=== PATIENT | female | born 1940 | race Caucasian/White ===

== ENCOUNTER → 2017-02-27 | Outpatient (CLI) | payer MEDICARE, OTHER | END | disposition home or self-care (01) | LOC: PCVCCLINIC 11:12 | PROVIDERS: ATTEND Internal Medicine Cardiovascular Disease | DX: I34.0 Nonrheumatic mitral (valve) insufficiency (principal); E78.00 Pure hypercholesterolemia, unspecified; I10 Essential (primary) hypertension; Z79.82 Long term (current) use of aspirin; Z79.899 Other long term (current) drug therapy | CPT/HCPCS: 80061; 93005; G0463 ==

== ENCOUNTER → 2018-02-26 | Outpatient (CLI) | payer MEDICARE, OTHER | END | disposition home or self-care (01) | LOC: PCVCIMAG 08:39 | DX: I07.1 Rheumatic tricuspid insufficiency (principal); I10 Essential (primary) hypertension; E78.00 Pure hypercholesterolemia, unspecified; R00.2 Palpitations; R06.02 Shortness of breath | CPT/HCPCS: 93005; 93306; G0463 ==

== ENCOUNTER → 2019-04-17 | Outpatient (CLI) | payer MEDICARE, OTHER | END | disposition home or self-care (01) | LOC: PCVCCLINIC 15:00 | PROVIDERS: ATTEND Internal Medicine Cardiovascular Disease | DX: I10 Essential (primary) hypertension (principal); E78.00 Pure hypercholesterolemia, unspecified; I34.0 Nonrheumatic mitral (valve) insufficiency; I42.9 Cardiomyopathy, unspecified; Z87.891 Personal history of nicotine dependence | CPT/HCPCS: 36415; 80061; 93005; G0463 ==

== ENCOUNTER → 2019-06-19 | Outpatient (CLI) | payer MEDICARE, OTHER ==
[~2019-06-19] MED LIST: REGADENOSON 0.4 MG/5 ML DISP.SYRIN. IV ONE
--- NOTE | 2019-06-19 13:23 | PCVCIMAG ---
APPROVED REPORT Imaging Protocol: Rest Tc-99m/Stress Tc-99m 1 day Study performed: 06/19/2019 09:27:19 Indication: Cardiomyopathy, Palpitations, Fatigue, Dyspnea Patient Location: Out-Patient Stress Nurse: Ora Douglas RN, Prudence Dickson RN [place] Tech:Zachary Lange KSTCB Ht: 5 ft 2 in Wt: 190 lbs BSA: 1.87 m2 HR: 60 bpm BP: 174/69 mmHg BMI: 34.74 Rhythm: Normal Sinus Rhythm Medical History Medical History: Age, Hyperlipidemia, HTN Medications: ASA, Losartan, Crestor Allergies: No known drug allergies Pretest Chest Pain Characteristics: No chest pain Exercise History: Indeterminate Resting Data Rest SPECT myocardial perfusion imaging was performed in supine position 45 minutes following the intravenous injection of 10.8 mCi of Tc-99m Sestamibi. Time of rest injection: 0920 Date: 06/19/2019 Administration Route: IV Administration Site: Right AC Pharmacologic Stress Pharmacologic stress test was performed by injecting Regadenoson 0.4 mg IV push over 10-15 seconds immediately followed by the intravenous injection of 35.2 mCi of Tc-99m Sestamibi. Time of stress injection: 1100 Date: 06/19/2019 Administration Route: IV Administration Site: Right AC Gated Stress SPECT was performed 45 minutes after stress injection. The images were gated to evaluate regional wall motion and calculate left ventricular ejection fraction. Stress Test Details Stress Test: Pharmacologic stress testing performed using 0.4 mg of regadenoson per 5 mL given IV over 10 seconds. HRMax Heart Rate (APMHR): 143 bpm Resting HR: 60 bpmTarget HR (85% APMHR): 121 bpm Max HR Achieved: 83 bpm % of APMHR: 58 Recovery HR: 85 bpm BP Resting BP: 174/69 mmHg Max BP: 145/66 mmHg Recovery BP: 135/66 mmHg ECG Resting ECG: Sinus Rhythm Stress ECG: Sinus Rhythm ST Change: Non-ischemic Arrhythmia: None Recovery ECG: Sinus Rhythm Clinical Reason for Termination: Completed protocol Stress Symptoms: Chest tightness Exercise duration: min 55 sec Symptoms resolved with caffeine. Study Quality Study: Good Artifact: Mild Breast artifact Study Data Post stress, the left ventricular ejection was 80%.. SSS: 1 SRS: 0 SDS: 1 TID = 1.03. Perfusion There is a small area of mildly reduced uptake in the apical segment of the anterior wall which is seen on the stress images as well as the resting images. This area thickens and moves normally and is most consistent with attenuation artifact. Wall Motion Normal left ventricular wall motion. Nuclear Conclusion ECG Findings: negative for ischemia Clinical Findings: non-diagnostic Nuclear Findings: negative for ischemia Exercise Capacity: not assessed Left Ventricular Function: normal This study is of low probability for inducible ischemia or prior infarct. Normal global and segmental LV systolic function. Artifact: Mild Breast artifact
--- NOTE | 2019-06-19 15:15 | PCVCIMAG ---
APPROVED REPORT Study performed: 06/19/2019 08:45:53 EXAM: Comprehensive 2D, Doppler, and color-flow Echocardiogram Patient Location: Echo lab Status: routine BSA: 1.91 HR: 66 bpmBP: 138/80 mmHg Rhythm: NSR Other Information Study Quality: Technically Difficult Risk Factors: Cardiac Risk Factors: HTN, Hyperlipidemia Indications Dyspnea Cardiomyopathy 2D Dimensions IVSd: 9.63 (7-11mm)LVOT Diam: 19.59 (18-24mm) LVDd: 36.11 mm PWd: 7.82 (7-11mm)Ascending Ao: 27.82 (22-36mm) LVDs: 30.24 (25-40mm) Left Atrium: 29.35 (27-40mm) Aortic Root: 29.02 mm LV Single Plane 4CH: 53.41 % LV Single Plane 2CH: 39.78 % Volumes Left Atrial Volume (Systole) Single Plane 4CH: 38.63 mLSingle Plane 2CH: 34.10 mL LA ESV Index: 19.00 mL/m2 Aortic Valve AoV Peak Sunil.: 0.97 m/s AO Peak Gr.: 3.79 mmHgLVOT Max P.32 mmHg LVOT Max V: 0.76 m/s [place] Vmax: 2.36 cm2 Mitral Valve E/A Ratio: 0.6 MV Decel. Time: 183.59 ms MV E Max Sunil.: 0.65 m/s MV A Sunil.: 1.04 m/s IVRT: 107.27 ms TDI E/Lateral E': 13.00E/Medial E': 13.00 Medial E' Sunil.: 0.05 m/s Lateral E' Sunil.: 0.05 m/s Pulmonary Valve PV Peak Gr.: 1.36 mmHg Pulmonary Vein P Vein S: 0.44 m/sP Vein A: 0.31 m/s P Vein D: 0.27 m/sP Vein A Dur.: 124.6 msec P Vein S/D Ratio: 1.63 Tricuspid Valve TR Peak Sunil.: 2.94 m/s TR Peak Gr.: 34.53 mmHg Left Ventricle The left ventricle is normal size. There is normal LV segmental wall motion. There is normal left ventricular wall thickness. Left ventricular systolic function is normal. The left ventricular ejection fraction is within the normal range. LVEF is 50%. Grade I - abnormal relaxation pattern. Right Ventricle The right ventricle is normal size. The right ventricular systolic function is normal. Atria The left atrium size is normal. The right atrium size is normal. Aortic Valve The aortic valve is normal in structure. No aortic regurgitation is present. There is no aortic valvular stenosis. Mitral Valve Mild mitral annular calcification. Trace to mild mitral regurgitation. No evidence of mitral valve stenosis. Tricuspid Valve The tricuspid valve is normal in structure. Trace to mild tricuspid regurgitation. Pulmonary artery pressure is 41mmHg. Pulmonic Valve The pulmonary valve is normal in structure. There is no pulmonic valvular regurgitation. Great Vessels The aortic root is normal in size. IVC is normal in size and collapses >50% with inspiration. Pericardium There is no pericardial effusion. <Conclusion> The left ventricle is normal size. LVEF is 50%. Grade I - abnormal relaxation pattern. The right ventricle is normal size. The left atrium size is normal. The aortic valve is normal in structure. Mild mitral annular calcification. Trace to mild mitral regurgitation. Trace to mild tricuspid regurgitation. Pulmonary artery pressure is 41mmHg. The aortic root is normal in size. There is no pericardial effusion.
== END | disposition home or self-care (01) ==
LOC: PCVCIMAG 08:33
PROVIDERS: ATTEND Internal Medicine Cardiovascular Disease
DX: I08.1 Rheumatic disorders of both mitral and tricuspid valves (principal); R06.00 Dyspnea, unspecified; I10 Essential (primary) hypertension; E78.00 Pure hypercholesterolemia, unspecified; Z79.899 Other long term (current) drug therapy; R06.02 Shortness of breath
CPT/HCPCS: 36415; 78452; 80061; 93017; 93306; A9500; G0463; J2785